=== PATIENT | female | born 1965 | race Caucasian/White ===

== ENCOUNTER 2020-01-02 11:26 | Emergency (ER) | payer OTHER, SELFPAY ==
--- NOTE | ~2020-01-02 | XR_ITS ---
EXAMINATION: XR knee RT min 4V DATE: 01/02/2020 12:04 INDICATION: Posterior right knee pain TECHNIQUE: Weight bearing anteroposterior and Glover, sunrise, and flexed lateral views of the rig ht knee were obtained COMPARISON: None. FINDINGS: Alignment is normal. No fracture. There is moderate joint space narrowing the medial compartment on the standing AP view. Mild joint space narrowing the heel compartment with thinning in the flexed pos ition. Mild joint space narrowing at the lateral side of the patellofemoral compartment. Small margin al osteophytes in the lateral compartment. No joint effusion/layering lipohemarthrosis. Soft tissues are unremarkable. IMPRESSION: 1. 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 Reviewed, dictated and finalized at location A. IMPRESSION: 1. Tricompartmental osteoarthritis at the right knee of mild to moderate severi ty in the medial compartment.
[2020-01-02 11:41] VITALS: BP 136/94; PULSE 80; RESP 16; TEMP 36.8; O2SAT 99
--- NOTE | 2020-01-02 11:44 | ED.LOWEXIN ---
HPI - Extremity Injury (Lower) General Chief Complaint: Extremity Injury, Lower Stated Complaint: Leg pain Time Seen by Provider: 01/02/20 11:44 Source: patient and RN notes reviewed History of Present Illness HPI Narrative: Patient is a 54-year-old female that presents the urgent care with complaints of right leg pain. Patient states is been ongoing for approximately 3 weeks and she attributed to being on her feet a lot, working at [employer]. Patient states the pain radiates from the right thigh and down behind the right knee. Patient has been using ibuprofen for pain. Patient denies any shortness of breath or history of DVT. Patient states that it did swell last night after being on her feet for several hours but is denying the swelling at the time. Denies any known trauma or injury. Patient states that the pain is directly posterior behind the right knee and is severe when straightening the leg or trying to walk. No other acute complaints. No acute distress noted. Patient read the plan of care. Related Data Allergies Allergy/AdvReac Type Severity Reaction Status Date / Time No Known Allergies Allergy Verified 01/02/20 11:48 Review of Systems Review of Systems: Narrative: CONSTITUTIONAL: Denies fever, chills, or sweats. EYES: Denies visual changes, redness, or discharge. ENT: Denies rhinorrhea, congestion, sore throat, or otalgia. CARDIOVASCULAR: Denies chest pain, palpitations, or edema. RESPIRATORY: Denies cough or dyspnea. GASTROINTESTINAL: Denies abdominal pain, nausea, vomiting, or diarrhea. GENITOURINARY: Denies dysuria or hematuria. SKIN: Denies rash or itching. MUSCULOSKELETAL: Reports of leg pain radiating from the right side to the back of the right knee NEUROLOGIC: Denies headache, numbness, or weakness. All other systems reviewed are negative, except as documented in HPI. PMFSH Family History Family History (Updated 09/28/16 @ 07:58 by DOCTOR UNKNOWN) Father Family history of lung cancer Mother Family history of malignant neoplasm of ovary Social History Social History Smoking status: Never smoker Alcohol intake: never Comments At the time of my signature, I reviewed and agree with the nursing past medical, surgical, social, and family history. There is no relevant family history pertinent to the patient complaint. Exam Narrative: Exam Narrative: GENERAL: This is a well-nourished, well-developed patient, in no apparent distress. HEAD: normocephalic, atraumatic. EYES: PERRL. Sclera clear/white. Vision is grossly intact. EARS: External ears normal NOSE: External nose normal with no obvious nasal discharge THROAT: Mucous membranes moist NECK: Neck supple CARDIOVASCULAR: Regular rate and rhythm without murmurs, gallops, or rubs. RESPIRATORY: Clear to auscultation. Breath sounds equal bilaterally. No wheezes, rales, or rhonchi. SKIN: warm, intact with no suspicious lesions or rash, good texture and turgor. NEURO: awake, alert, and oriented to person, place and time. There were no obvious focal neurologic abnormalities. EXTREMITIES: Notable palpable nodule (likely a Teran's cyst) to the posterior right knee with increased pain with movement and straightening; negative anterior knee tenderness; no edema to bilateral lower extremities; positive strong right pedal pulse with capillary refill less than 2 seconds. Course Vital Signs Vital signs: Vital Signs Temperature 98.2 F 01/02/20 11:41 Pulse Rate 80 01/02/20 11:41 Respiratory Rate 16 01/02/20 11:41 Blood Pressure 136/94 H 01/02/20 11:41 Pulse Oximetry 99 01/02/20 11:41 Temperature 98.2 F 01/02/20 11:41 Pulse Rate 80 01/02/20 11:41 Respiratory Rate 16 01/02/20 11:41 Blood Pressure 136/94 H 01/02/20 11:41 Pulse Oximetry 99 01/02/20 11:41 Reviewed?patient is informed that they may have pre-hypertension or hypertension based on a blood pressure reading in the department. I recommend the patient call the [facility]
== END 2020-01-02 12:33 | disposition home or self-care (01) ==
PROVIDERS: Emergency Provider Nurse Practitioner Family
DX: M17.11 Unilateral primary osteoarthritis, right knee (principal)
CPT/HCPCS: 73564; 99213; G0463